=== PATIENT | male | born 1935 | race Caucasian/White ===

== ENCOUNTER 2020-11-21 07:23 | Emergency (ER) | payer MEDICARE, BC ==
[~2020-11-21] VITALS: Ht 177.8 cm; Wt 71.8 kg
[2020-11-21 07:27] VITALS: Ht 177.8 cm; Wt 71.8 kg
[2020-11-21 07:30] VITALS: BP 138/89
--- NOTE | 2020-11-21 07:49 | NUR ---
FIRST CONTACT ASSESSMENT AND TRIAGE ENTER UNDER B. CH[facility]BERS LOGIN.
[2020-11-21 08:00] VITALS: BP 123/82
--- NOTE | 2020-11-21 08:00 | NUR ---
INCONTINENCE BRIEFS REMOVED. SMALL AMOUNT OF STOOL CLEANED FROM BUTTOCKS AND GROIN FOLDS. STAGE 1 PRESSURE INJURY PRESENT ON SACRUM/COCCYX/SCROTUM. IT DERMATITIS PRESENT IN GROUN FOLDS. URINAL PROVIDED TO COLLECT URINE SPECIMEN.
[2020-11-21 08:45] LABS: BASOPHILS 0.1 % (0-2); EOSINOPHILS 0 % (0-7); HEMATOCRIT 48.3 % (42.0-54.0); HEMOGLOBIN 16.8 g/dL (13.5-17.5); IMMATURE GRANULOCYTES 0.2 % (0-5); LYMPHOCYTES 8.2 % (15-50); MCH 31.6 pg (26.0-34.0); MCHC 34.8 g/dL (31.0-37.0); MCV 90.8 fL (80.0-100.0); MEAN PLATELET VOLUME 10.8 fL (7.4-10.4); MONOCYTES 9.9 % (2-11); NEUTROPHIL ABS# 7.97 10x3/uL (1.78-5.38); NEUTROPHILS 81.6 % (40-80); PLATELET COUNT 199 10x3/uL (130-400); RBC 5.32 10x6/uL (4.20-6.10); RDW 14.2 % (11.5-14.5); WBC 9.8 10x3/uL (4.8-10.8)
[2020-11-21] MEDS ORDERED: GLUCOPHAGE500 MG PO (08:49)
[2020-11-21] MEDS ORDERED: JANTOVEN10 MG PO (08:50)
[2020-11-21] MEDS ORDERED: FUROSEMIDE40 MG PO (08:51)
[2020-11-21 08:52] LABS: APTT 24.4 SECONDS (22.8-39.4); INR 1.43 (0.85-1.17); PROTIME 16.2 SECONDS (11.6-15.0)
[2020-11-21] MEDS ORDERED: ZYLOPRIM100 MG PO (08:52)
[2020-11-21] MEDS ORDERED: CARTIA XT180 MG PO (08:52)
[2020-11-21] MEDS ORDERED: JANTOVEN7.5 MG PO (08:53)
[2020-11-21 08:55] LABS: CALC OSMOLALITY 279 mosm/kg (275-300); CALCIUM 8.6 mg/dL (8.5-10.1); CARBON DIOXIDE 22.8 mmol/L (21.0-32.0); CHLORIDE - SERUM 102 mmol/L (98-107); CREATININE - SERUM 0.9 mg/dL (0.6-1.3); GLUCOSE 181 mg/dL (74-106); POTASSIUM - SERUM 3.9 mmol/L (3.5-5.1); SODIUM 136 mmol/L (136-145); UREA NITROGEN 22 mg/dL (7-18); eGFR NON AFRICAN AMERICAN 85 mL/min (90-120)
[2020-11-21 09:00] VITALS: BP 134/95
--- NOTE | 2020-11-21 09:10 | NUR ---
IN AND OUT CATHETERIZATION PERFORMED TO OBTAIN URINE SPECIMEN.
[2020-11-21 09:18] LABS: ALBUMIN 2.5 g/dL (3.4-5.0); ALKALINE PHOSPHATASE 119 U/L (30-120); ALT (SGPT) 23 U/L (10-68); BILIRUBIN - TOTAL 3.21 mg/dL (0.2-1.3); CKMB 1.3 U/L (0.0-3.6); CREATINE KINASE 62 UL (21-232); PRO BNP 11233 pg/mL (0-450); PROTEIN - SERUM 7.7 g/dL (6.4-8.2)
[2020-11-21 10:00] VITALS: BP 131/85
[2020-11-21 10:07] LABS: BILIRUBIN NEGATIVE (NEGATIVE); KETONE NEGATIVE (NEGATIVE); NITRITE NEGATIVE (NEGATIVE); UROBILINOGEN 8 mg/dL (< 2)
[2020-11-21 10:10] LABS: BACTERIA FEW HPF (NONE SEEN); SQUAMOUS EPITHELIAL RARE HPF (0-4); WHITE CELLS - URINE RARE HPF (0-1)
--- NOTE | 2020-11-21 10:37 | NUR ---
DILTIAZEM 10MG IV SLOW PUSH GIVEN. HR 124, ATRIAL FIB WITH OCCASIONAL PVCS.
--- NOTE | 2020-11-21 10:45 | NUR ---
MEPILEX SACRAL APPLIED TO SACRUM AND COCCYX FOR PROTECTION OF STAGE 1 PRESSURE INJURY. TURNED TO LEFT SIDE FOR PRESSURE RELIEF. MALE EXTERNAL CATHETER APPLIED DUE TO FUROSEMIDE IV AND CURRENT INCONTINENCE TO MAINTAIN SKIN DRYNESS.
[2020-11-21 11:00] VITALS: BP 127/88
--- NOTE | 2020-11-21 11:05 | NUR ---
HEART RATE NOW 96 TO 110. MAY REPEAT CARDIAZEM 10MG IF NEEDED PER DR. MESSER.
--- NOTE | 2020-11-21 13:25 | NUR ---
PATIENT CONSENTED FOR A LUMBAR PUNCTURE. NO BLOOD THINNERS, NO ALLERGIES. OPENING PRESSURE OF 15. TIME OUT PERFORMED AT 1220 BY JASON URBINA(R) AND DR. LOZADA
--- NOTE | 2020-11-21 13:33 | NUR ---
PATIENT RETURNED FROM RADIOLOGY. HOB POSITIONED AT 30 DEGREES. SARS COVID SWAB OBTAINED. WATER GIVEN. MALE EXTERNAL CATHETER PULLED OFF IN RADIOLOGY.
[2020-11-21 13:59] LABS: SARS-CoV-2 ANTIGEN NEGATIVE- SARS-COV-2 (NEGATIVE)
--- NOTE | 2020-11-21 14:05 | NUR ---
PATIENT INCONTINENT OF LARGE AMOUNT OF URINE. 16F INDWELLING ISAAC CATHETER INSERTED WITHOUT DIFFICULTY. YELLOW URINE RETURNED.
[2020-11-21 14:06] LABS: APPEARANCE - CSF XANTHOCHROMIC; RBC - CSF 2560 cmm (0-0)
[2020-11-21 14:13] LABS: GLUCOSE - CSF 81 MG/DL (40-75); PROTEIN - CSF 119 MG/DL (12-60)
[2020-11-21 14:16] LABS: CKMB 1.5 U/L (0.0-3.6); CREATINE KINASE 59 UL (21-232); TROPONIN-I 0.022 ng/mL (0.000-0.060)
--- NOTE | 2020-11-21 15:00 | NUR ---
LINENS CHANGED AND POSITIONED OFF BACK WITH WEDGE. LIQUIDS APPROVED BY DR. MESSER. APPLE JUICE, JELLO AND LEMON KWINHAGAK SODA GIVEN.
--- NOTE | 2020-11-21 16:10 | NUR ---
REPORT CALLED TO PRASANNA KELSEY RN, [facility] NOTIFIED FOR TRANSPORT.
--- NOTE | 2020-11-21 17:12 | NUR ---
EMS HERE FOR TRANSPORT TO [facility] ER. DAUGHTER AT BEDSIDE. SALINE LOCK AND ISAAC CATHETER INTACT.
[2020-11-21 17:47] VITALS: BP 134/81
== END 2020-11-21 18:06 | disposition home or self-care (01) ==
LOC: D.ER 07:23 → D.M2 11:49 → D.ER 11:49 → D.EDHOLD 14:06 → D.M2 14:06 → D.EDHOLD 18:06 → D.ER 18:06
PROVIDERS: Emergency Medicine
PROC: 009U3ZZ Drainage of Spinal Canal, Percutaneous Approach (ICD-10-PCS; principal; 2020-11-21)
DX: T88.0XXA Infection following immunization, initial encounter (principal); G00.9 Bacterial meningitis, unspecified; I48.20 Chronic atrial fibrillation, unspecified; E87.2 Acidosis; G61.0 Guillain-Barre syndrome; R53.1 Weakness; E80.6 Other disorders of bilirubin metabolism; I50.9 Heart failure, unspecified; E11.9 Type 2 diabetes mellitus without complications; I45.10 Unspecified right bundle-branch block; M43.6 Torticollis; Y83.2 Surgical operation with anastomosis, bypass or graft as the cause of abnormal reaction of the patient, or of later complication, without mention of misadventure at the time of the procedure

== ENCOUNTER → 2021-01-13 13:49 | Outpatient (CLI) | payer MEDICARE, BC ==
[2020-11-21 07:27] VITALS: BMI 22.7
[~2021-01-13 13:49] MED LIST: CARTIA XT180 MG PO; FUROSEMIDE40 MG PO; GLUCOPHAGE500 MG PO; JANTOVEN10 MG PO; JANTOVEN7.5 MG PO; ZYLOPRIM100 MG PO
== END | disposition home or self-care (01) ==
LOC: D.US 13:49
PROVIDERS: ATTEND Family Medicine
DX: L89.609 Pressure ulcer of unspecified heel, unspecified stage (principal)